=== PATIENT | male | born 1985 | race Caucasian/White ===

== ENCOUNTER 2016-12-09 10:08 | Day surgery (SDC) | payer SELFPAY ==
--- NOTE | 2016-12-09 10:49 | ED PDOC ---
HPI: Skin/Bite Injury Time Seen by Provider: 12/09/16 10:18 Chief Complaint (Nursing): Upper Extremity Problem/Injury Chief Complaint (Provider): Left hand laceration - Work injury History Per: Patient History/Exam Limitations: no limitations Onset/Duration Of Symptoms: Days Current Symptoms Are (Timing): Still Present Quality Of Symptoms: Painful Severity: Moderate Pain Scale Rating Of: 5 Additional Complaint(s): Left hand laceration, between ring finger and pinky. PT states a piece of metal was vertical and it was very thin and sharp. Pt states he moved and the metal went between his finger cutting him. Pt denies numbness/tingling but cannot move his left 5th digit. Past Medical History Reviewed: Historical Data, Nursing Documentation, Vital Signs Vital Signs: Last Vital Signs Temp 98 F 12/09/16 18:00 Pulse 80 12/09/16 18:00 Resp 18 12/09/16 18:00 BP 157/93 H 12/09/16 18:00 Pulse Ox 95 12/16/16 12:45 - Medical History PMH: No Chronic Diseases - Surgical History Surgical History: No Surg Hx - Family History Family History: States: Unknown Family Hx - Living Arrangements Living Arrangements: With Family - Social History Current smoker - smoking cessation education provided: No Alcohol: Occasional Drugs: Denies - Immunization History Hx Tetanus Toxoid Vaccination: Yes - Home Medications Home Medications: Ambulatory Orders Medication Instructions Recorded No Known Home Med 12/09/16 - Allergies Allergies/Adverse Reactions: Allergies Allergy/AdvReac Type Severity Reaction Status Date / Time Penicillins Allergy ITCHING Verified 12/09/16 10:24 Review of Systems ROS Statement: Except As Marked, All Systems Reviewed And Found Negative Skin: Positive for: Other Physical Exam - Reviewed Nursing Documentation Reviewed: Yes Vital Signs Reviewed: Yes - Physical Exam Appears: Positive for: Well, Non-toxic, No Acute Distress Head Exam: Positive for: ATRAUMATIC, NORMAL INSPECTION, NORMOCEPHALIC Skin: Positive for: Warm. Negative for: Normal Color ((+) deep laceration which extends between the left 4th and 5th digits to the base of the 5th digit anteriorly, (+) laceration of tendon ) Eye Exam: Positive for: Normal appearance ENT: Positive for: Normal ENT Inspection Neck: Positive for: Normal, Painless ROM Cardiovascular/Chest: Positive for: Regular Rate, Rhythm Respiratory: Positive for: Normal Breath Sounds. Negative for: Accessory Muscle Use Back: Positive for: Normal Inspection Extremity: Positive for: Capillary Refill (normal in left all of digits). Negative for: Normal ROM (Unable to flex the left 5th digit at all) Neurologic/Psych: Positive for: Alert, Oriented - Laboratory Results Result Diagrams: 12/09/16 10:50 12/09/16 10:50 - ECG O2 Sat by Pulse Oximetry: 95 (RA) Pulse Ox Interpretation: Normal Medical Decision Making Medical Decision Making: Discussed with Dr. Fang. States he is going to come to the ER to evaluated and possible OR at 2pm. Disposition - Clinical Impression Clinical Impression: Cut of hand - Disposition Disposition Time: 10:52 Condition: STABLE
[2016-12-09 11:07] LABS: BASO % 0.6 % (0.0-2.0); EOS % 0.1 % (0.0-4.0); HEMATOCRIT 43.6 % (35.0-51.0); LYMPH # 2.6 K/uL (1.0-4.3); LYMPH % 39.2 % (20.0-40.0); MEAN CELL VOLUME 101.7 fl (80.0-94.0); MEAN CORPUSCULAR HEMOGLOBIN 34.4 pg (27.0-31.0); MEAN CORPUSCULAR HGB CONC 33.8 g/dL (33.0-37.0); MEAN PLATELET VOLUME 7.5 fl (7.2-11.7); MONO # 0.8 K/uL (0.0-0.8); MONO % 11.8 % (0.0-10.0); NEUT # 3.2 K/uL (1.8-7.0); NEUT % 48.3 % (50.0-75.0); NRBC % 0.2 % (0.0-0.0); RED CELL DISTRIBUTION WIDTH 13.7 % (11.5-14.5); WHITE BLOOD COUNT 6.7 K/uL (4.8-10.8)
[2016-12-09 11:16] LABS: ALB/GLOB RATIO 1.4 (1.0-2.1); ALKALINE PHOSPHATASE 63 U/L (38-126); ALT/SGPT 67 U/L (21-72); AST/SGOT 51 U/L (17-59); BILIRUBIN,TOTAL 0.6 mg/dl (0.2-1.3); BLOOD UREA NITROGEN 13 mg/dl (9-20); CALCIUM 9.6 mg/dL (8.4-10.2); CARBON DIOXIDE 25 mmol/L (22-30); CHLORIDE 102 mmol/L (98-107); GFR AFRICAN-AMERICAN > 60; GLUCOSE,RANDOM 100 mg/dL (75-110); POTASSIUM 3.7 MMOL/L (3.6-5.0); SODIUM 138 mmol/l (132-148); TOTAL PROTEIN 8.4 G/DL (6.3-8.2)
[2016-12-09 11:23] LABS: PARTIAL THROMBOPLASTIN TIME 25.4 SECONDS (23.3-32.5)
[2016-12-09] MEDS ORDERED: Sodium Chloride 0.9% 1,000 ML IV STA (11:45)
[2016-12-09] MEDS ORDERED: Bupivacaine HCl 0.5% PF (30 ml) Inj ONE (13:11)
[2016-12-09] MEDS ORDERED: Lidocaine 1% Inj (20ml) ONE (13:11)
[2016-12-09] MEDS ORDERED: Succinylcholine 200 mg/10 ml Inj IV ONE (13:51)
[2016-12-09] MEDS ORDERED: Midazolam 2 MG/2 ML VIAL ONE (13:51)
[2016-12-09] MEDS ORDERED: Propofol 10 mg/ml Inj (20 ML) ONE ×2 (13:51→14:32)
--- NOTE | 2016-12-09 13:59 | RAD ---
PROCEDURE: Left Hand Radiographs. Views of the Three views of the left hand performed. HISTORY: Laceration, with tendon involvement COMPARISON: None. FINDINGS: BONES: Current study reveals no evidence of acute displaced fracture nor dislocation. Osseous structures appear intact. No cortical destructive changes. Note however that the exam is somewhat limited due to partial flexion and overlapping of fingers partially obscuring detail JOINTS: Normal. No osteoarthritic changes. SOFT TISSUES: Normal. OTHER FINDINGS: No radiopaque foreign body seen. IMPRESSION: Limited study due to overlapped on anatomy as above. No evidence of acute fracture nor dislocation. No radiopaque foreign bodies seen.
[2016-12-09] MEDS ORDERED: Lactated Ringer's 1,000 ML IV ONE ×2 (14:05→16:10)
[2016-12-09] MEDS ORDERED: Clindamycin 600 MG in Sodium Chloride 0.9% 100 ML IVPB ONE (14:06)
[2016-12-09] MEDS ORDERED: Rocuronium 10 mg/ml (5 ml) ONE (14:11)
[2016-12-09] MEDS ORDERED: Albuterol HFA 90 mcg/actuation (8 g) ONE (14:22)
[2016-12-09] MEDS ORDERED: Sevoflurane - Inhalation Anesthetic Liq (250 ml) ONE (14:35)
[2016-12-09] MEDS ORDERED: Lidocaine 2% Inj (20ml) ONE (14:39)
[2016-12-09] MEDS ORDERED: Vecuronium 10 mg Inj ONE (15:17)
[2016-12-09] MEDS ORDERED: Neostigmine Methylsulfate 3mg/3ml Syringe IV ONE (15:43)
[2016-12-09] MEDS ORDERED: Neostigmine Methylsulfate 2 MG/2 ML ML IV ONE (15:43)
[2016-12-09 16:49] VITALS: RESP 18
[2016-12-09] MEDS ORDERED: Lactated Ringer's 1,000 ML IV SCH (17:25)
[2016-12-09] MEDS ORDERED: HYDROmorphone 0.5 mg/0.5 ml ISec IVP PRN (17:25)
--- NOTE | 2016-12-09 17:31 | PCM.SURG1 ---
Surgeon's Initial Post Op Note - Surgeon's Notes Surgeon: eliza Blasting Clay Miner: none Type of Anesthesia: General Endo Pre-Operative Diagnosis: flexor tendtons laceration Left 5 th digit Operative Findings: see dictation Post-Operative Diagnosis: same Operation Performed: zone 2 FDP and FDS repair Specimen/Specimens Removed: none Estimated Blood Loss: EBL {In ML}: 0 Date of Surgery/Procedure: 11/29/16 Time of Surgery/Procedure: 14:00
[2016-12-09 18:20] VITALS: BP 157/93; PULSE 80; TEMP 98
--- NOTE | 2016-12-09 20:38 | OP ---
PROCEDURE DATE: 12/09/2016 SURGEON: Michele Fang M.D. PSYCHOLOGISTS: None. PREOPERATIVE DIAGNOSES: 1. Left fifth digit zone 2, flexor digitorum profundus laceration. 2. Left fifth digit zone 2, flexor digitorum superficialis laceration. POSTOPERATIVE DIAGNOSES: 1. Left fifth digit zone 2, flexor digitorum profundus laceration. 2. Left fifth digit zone 2, flexor digitorum superficialis laceration. 3. Left fifth digit radial digital artery laceration. 4. Left fifth digit radial digital nerve laceration. 5. Left fifth digit flexor tenosynovitis. 6. Left fifth digit laceration open wound. PROCEDURE PERFORMED: 1. Left fifth digit zone 2, flexor digitorum profundus repair. [id number]. 2. Left fifth digit zone 2, flexor digitorum superficialis repair [id number]. 3. Left fifth digit flexor digitorum profundus tenosynovectomy in the hand and finger. [id number] . Left fifth digit flexor digitorum superficialis tenosynovectomy in the hand and fingers. [id number]. 5. Left fifth digit tendon sheath incision at A1 parker. [id number] 6. Left fifth digit open wound exploration. . ESTIMATED BLOOD LOSS: 0. ANESTHESIA: General. COMPLICATIONS: None. SPECIMENS: None. DISPOSITION: Stable to recovery room. INDICATIONS: A 30-year-old right hand dominant male who sustained an injury at his work. The patien t lacerated his finger with a sharp metal object and was brought to the Emergency Room. In the Emerg ency Room, the patient was evaluated and found to have full thickness flexor tendon laceration. The patient was taken emergently from the ER to the operating room for wound exploration and repair of th e above structures. Risks of surgery were explained in detail. They include but not limited to blee ding, infection, tendon, nerve or vessel injury, stiffness, re-rupture, potential need for additional surgery in the future. The patient understood the above risks and elected to proceed. Informed con sent was obtained. DESCRIPTION OF PROCEDURE: The patient was brought to the operating room and placed supine on the ope rating room table. After general anesthesia was given a nonsterile tourniquet was applied to the lef t upper extremity. Prophylactic antibiotics were given. The left upper extremity was then prepped a nd draped in standard surgical fashion. A timeout was performed. An incision was outlined using Fred type incision over the volar aspect of the digit extending to t he proximal palmar crease of the hand and proximal and middle volar aspect of the phalanx. The hand was elevated and exsanguinated. The tourniquet was inflated. The Esmarch was removed. Incision was made through the skin, flaps were raised. Superficial veins were cauterized with electrocautery. T he wound was then inspected and explored. This was zone 2 injury of both full thickness laceration a nd retraction of the FDS and FDP tendons. There was also a full thickness laceration of the radial d igital nerve and artery, which were not amenable to repair. Work was begun on repairing the tendons. The A1 parker and the A3 parker sheath were excised to identify the tendons. The proximal tendons were retracted proximally to the palm, they were retrieved with a tendon grasper. Tenosynovectomy wa s performed on both the proximal and distal limbs of both FDP and FDS tendons. Proximally the FDP an d FDS tendons were identified and retracted. They were brought out to the laceration site. First work was begun on repairing the FDP tendon. Then 25-gauge needles were placed in both ends of the tendon to keep it in place. Both edges of the tendon were cleared and cut sharply. The edges we re then reapproximated and sutured using a 4-0 Ethibond suture, performing a 4 strand modified Kessle r technique. After this, a 6-0 Prolene running suture was placed to add additional strength to the t endon. There was no gapping of the tendon after repair. Next work was begun on repairing the FDS tendon. B oth ends of the FDS were held provisionally with 25 gauge needles. The edges were cut clean to good tendon tissue. The 2 edges were then reapproximated and sutured together using a 4-0 Ethibond 4 core modified Ibanez technique. The wound was then copiously irrigated and both tendons had no gapping with straightening of the finger, tenodesis showed good alignment of all digits. The ulnar digital n erve and artery were identified, exposed and were uninjured. The wound was then copiously irrigated. Tourniquet was deflated and hemostasis was obtained. The sk in was then closed with interrupted 4-0 nylon sutures. Skin flaps had good capillary refills. Steri le dressing was applied with Xeroform, 4 x 4s, fluffs and a posterior dorsal blocking plaster splint. The patient tolerated the procedure well and returned to recovery room in excellent condition. He will follow up with me in 2-3 days to start modified [place] physical therapy protocol. Michele Fang M.D. cc: [id number] TT: 12/09/2016 20:37:20 [place]
[2016-12-16 12:45] VITALS: O2SAT 95
== END 2016-12-09 19:00 | disposition home or self-care (01) ==
LOC: H.ER 10:08 → H.SDS 10:52 → H.ER 19:00
PROVIDERS: ATTEND Orthopaedic Surgery
DX: S61.012A Laceration without foreign body of left thumb without damage to nail, initial encounter (principal); M65.88 Other synovitis and tenosynovitis, other site; Z88.0 Allergy status to penicillin; X58.XXXA Exposure to other specified factors, initial encounter; Y93.89 Activity, other specified; S64.32XA Injury of digital nerve of left thumb, initial encounter
CPT/HCPCS: 20103; 26356; 26442; 73120; 80053; 85025; 85610; 85730; 86850; 86900; 96361; 96374; 99283; J0330; J1720; J2250; J2270; J2405; J2704; J2710; J3010; J7040; J7120